=== PATIENT | male | born 1950 | race Caucasian/White ===

== ENCOUNTER 2019-08-17 12:23 | Emergency (ER) | payer SELFPAY ==
[2019-08-17 13:25] LABS: Protime INR 0.97
[2019-08-17 13:27] LABS: Absolute Lymphocytes (CBC) 1.5 K/uL (0.7-4.9); Basophils % 0.5 % (0-1.3); Hematocrit 38.5 % (39.6-49.0); Lymphocytes % 15.5 % (15.3-44.8); MPV 8.4 fL (7.6-11.3); RBC Red Blood Cell Count 4.38 M/uL (4.33-5.43)
[2019-08-17 13:37] LABS: ALT/SGPT 17 U/L (12-78); AST/SGOT 18 U/L (15-37); Albumin 3.2 g/dL (3.4-5.0); Alkaline Phosphatase 105 U/L (45-117); BUN Blood Urea Nitrogen 19 mg/dL (7-18); Bicarbonate 26 mmol/L (21-32); Bilirubin Direct 0.1 mg/dL (0-0.2); Bilirubin Total 0.6 mg/dL (0.2-1.0); Glucose Level 84 mg/dL (74-106); NT PRO-BNP 427 pg/mL (<125); Potassium 3.6 mmol/L (3.5-5.1); Protein, Total 6.7 g/dL (6.4-8.2); Sodium Level 141 mmol/L (136-145); Troponin (Emerg Dept Use Only) < 0.02 ng/mL (0.0-0.045)
--- NOTE | 2019-08-17 13:47 | RAD REPORT ---
EXAM DESCRIPTION: RAD - Chest Single View - 08/17/2019 1:36 pm CLINICAL HISTORY: CHEST PAIN Chest pain. COMPARISON: No comparisons FINDINGS: Portable technique limits examination quality. The lungs are grossly clear. The heart is normal in size. No displaced fractures. IMPRESSION: No acute intrathoracic process suspected.
--- NOTE | 2019-08-17 14:44 | EDPHYS ---
Physician Documentation [facility] Name: Raffaele Weinberg Age: 69 yrs Sex: Male : 1950 Arrival Date: 08/17/2019 Time: 12:14 Bed 17 Private MD: ED Physician Yoshi Lee HPI: 08/16 12:17 This 69 yrs old Male presents to ER via EMS with complaints of Chest Pain. [facility] 12:17 The patient presents with abdominal pain. The symptoms are described as achy. This is a jmm 69 year old male with a history of dm, htn, hlp, cva that presents to the ED with complaints of mild episogastric abdominal pain. Patient currently has no other complaints. According to PD, patient had complaints of hip pain, left left sided pain. . Historical: - PMHx: 12:45 Diabetes - NIDDM; Hypertension; Hyperlipidemia; CVA; CHF; sv - Immunization history:: Adult Immunizations up to date. ROS: 12:17 Constitutional: Negative for fever, chills, and weight loss, Cardiovascular: Negative jmm for chest pain, palpitations, and edema, Respiratory: Negative for shortness of breath, cough, wheezing, and pleuritic chest pain. 12:17 Abdomen/GI: Positive for abdominal pain. 12:17 All other systems are negative. Exam: 12:17 Constitutional: This is a well developed, well nourished patient who is awake, alert, jmm and in no acute distress. Head/Face: atraumatic. Eyes: EOMI, no conjunctival erythema appreciated ENT: Moist Mucus Membranes Neck: Trachea midline, Supple Chest/axilla: Normal chest wall appearance and motion. Cardiovascular: Regular rate and rhythm. No edema appreciated Respiratory: Normal respirations, no respiratory distress appreciated 12:17 Back: Normal ROM Skin: General appearance color normal MS/ Extremity: Moves all extremities, no obvious deformities appreciated, no edema noted to the lower extremities Neuro: Awake and alert, normal gait Psych: Behavior is normal, Mood is normal, Patient is cooperative and pleasant 12:17 Abdomen/GI: Inspection: abdomen appears normal, Bowel sounds: normal, Palpation: abdomen is soft and non-tender. Vital Signs: 12:30 BP 138 / 84; Pulse 74; Resp 21; Pulse Ox 97% ; ah 13:30 BP 161 / 90; Pulse 73; Resp 21; Pulse Ox 100% ; ah 14:42 BP 167 / 86; Pulse 76; Resp 18; Pulse Ox 100% on R/A; mh5 MDM: 12:17 Patient medically screened. [facility] 14:41 Data reviewed: vital signs, nurses notes. Counseling: I had a detailed discussion with jordyn the patient and/or guardian regarding: the historical points, exam findings, and any diagnostic results supporting the discharge/admit diagnosis, lab results, radiology results, the need for outpatient follow up, to return to the emergency department if symptoms worsen or persist or if there are any questions or concerns that arise at home. ED course: Patient is alert and non toxic in appearance. Vitals WNL. Patient is advised to return to the ED if symptoms worsen. Patient understood an agrees with the plan of care. . 08/16 12:45 Order name: Basic Metabolic Panel; Complete Time: 13:41 [facility] 08/16 12:45 Order name: CBC with Diff; Complete Time: 13:31 [facility] 08/16 12:45 Order name: LFT's; Complete Time: 13:41 [facility] 08/16 12:45 Order name: Magnesium; Complete Time: 13:41 [facility] 08/16 12:45 Order name: NT PRO-BNP; Complete Time: 13:41 [facility] 08/16 12:45 Order name: PT-INR; Complete Time: 13:31 [facility] 08/16 12:45 Order name: Troponin (emerg Dept Use Only); Complete Time: 13:41 [facility] 08/16 12:45 Order name: XRAY Chest (1 view); Complete Time: 14:02 [facility] 08/16 12:45 Order name: EKG; Complete Time: 12:46 [facility] 08/16 12:45 Order name: Cardiac monitoring; Complete Time: 12:55 [facility] 08/16 12:45 Order name: EKG - Nurse/Tech; Complete Time: 13:13 [facility] 08/16 12:45 Order name: IV Saline Lock; Complete Time: 13:08 [facility] 08/16 13:07 Order name: Lipase; Complete Time: 14:02 08/16 13:19 Order name: Glucose, Ancillary Testing; Complete Time: 13:31 [facility] 08/16 12:45 Order name: Labs collected and sent; Complete Time: 13:08 [facility] 08/16 12:45 Order name: O2 Per Protocol; Complete Time: 13:08 [facility] 08/16 12:45 Order name: O2 Sat Monitoring; Complete Time: 13:08 [facility] Administered Medications: No medications were administered Disposition: 15:44 Co-signature as Attending Physician, Yoshi Lee MD I agree with the assessment and [facility] plan of care. Disposition: 08/17/19 14:44 Discharged to Home. Impression: Person with feared health complaint in whom no diagnosis is made. - Condition is Stable. - Medication Reconciliation Form, Thank You Letter, Antibiotic Education, Prescription Opioid Use form. - Follow up: Private Physician; When: 2 - 3 days; Reason: Recheck today's complaints, Continuance of care, Re-evaluation by your physician. Signatures: Dispatcher [employer] Mandy Alegria RN Yoshi Chatterjee MD MD cha Mickail, Joel, PA PA jmm Baxter, Heather, RN RN hb Harris, Amy, RN RN Corrections: (The following items were deleted from the chart) 15:01 14:44 08/17/2019 14:44 Discharged to Home. Impression: Person with feared health hb complaint in whom no diagnosis is made. Condition is Stable. Forms are Medication Reconciliation Form, Thank You Letter, Antibiotic Education, Prescription Opioid Use. Follow up: Private Physician; When: 2 - 3 days; Reason: Recheck today's complaints, Continuance of care, Re-evaluation by your physician. [facility]
--- NOTE | 2019-08-17 14:44 | ER ---
Nurse's Notes [facility] Name: Raffaele Weinberg Age: 69 yrs Sex: Male : 1950 Arrival Date: 08/17/2019 Time: 12:14 Bed 17 Private MD: Diagnosis: Person with feared health complaint in whom no diagnosis is made Presentation: 08/16 12:10 Chief complaint: EMS states: chest pain since yesterday while in [place], was being sv transferred to [facility] and they wouldn't take him unless he got checked out. c/o soreness all over body. Coronavirus screen: Proceed with normal triage. Patient denies a cough. Patient denies shortness of breath or difficulty breathing. Patient denies measured and/or subjective temperature greater than 100.4F prior to today's visit. Patient denies travel on a cruise ship or to a country the [facility] currently lists as an affected area. Patient denies contact with known and/or suspected case of COVID-19. Ebola Screen: No symptoms or risks identified at this time. Risk Assessment: Do you want to hurt yourself or someone else? Patient reports no desire to harm self or others. Onset of symptoms was August 16, 2019. 12:10 Method Of Arrival: EMS: [facility] sv 12:10 Acuity: MARELY 3 sv 14:27 Initial Sepsis Screen: Does the patient meet any 2 criteria? No. Patient's initial sepsis screen is negative. Does the patient have a suspected source of infection?. Historical: - PMHx: 12:45 Diabetes - NIDDM; Hypertension; Hyperlipidemia; CVA; CHF; sv - Immunization history:: Adult Immunizations up to date. Screenin:26 Abuse screen: Denies threats or abuse. Nutritional screening: No deficits noted. Tuberculosis screening: No symptoms or risk factors identified. Fall Risk None identified. Assessment: 13:08 General: Appears uncomfortable, Behavior is calm, cooperative. Pain: Complains of pain ah in epigastric area Pain does not radiate. Quality of pain is described as aching, throbbing, Pain began 1 hour ago. Neuro: Level of Consciousness is awake, alert, Oriented to person, place, time, situation. Cardiovascular: Capillary refill < 3 seconds Patient's skin is warm and dry. Rhythm is sinus rhythm. Respiratory: Airway is patent Respiratory effort is even, unlabored. GI: Last BM was August 15, 2019. Bowel sounds present X 4 quads. Abdomen is tender to palpation in right upper quadrant. Derm: Skin is intact, is healthy with good turgor. 14:27 Reassessment: Pt resting with eyes closed and resp even and unlabored. 2 officers sitting outside of room. Vital Signs: 12:30 BP 138 / 84; Pulse 74; Resp 21; Pulse Ox 97% ; ah 13:30 BP 161 / 90; Pulse 73; Resp 21; Pulse Ox 100% ; ah 14:42 BP 167 / 86; Pulse 76; Resp 18; Pulse Ox 100% on R/A; mh5 ED Course: 12:14 Patient arrived in ED. 12:15 Lucas Myrick PA is PHCP. [facility] 12:15 Yoshi Lee MD is Attending Physician. [facility] 12:16 Triage completed. sv 12:38 EKG done, by laboratory development technician. reviewed by Lucas SALAS. at1 12:45 Inserted saline lock: 20 gauge in right antecubital area, using aseptic technique. ah 12:55 Sandra Garcia, RN is Primary Nurse. 13:37 XRAY Chest (1 view) In Process Unspecified. EDMS 14:26 Patient has correct armband on for positive identification. Bed in low position. Call light in reach. Side rails up X2. Security at bedside. proof machine operator on. Pulse ox on. NIBP on. 14:27 Patient maintains SpO2 saturation greater than 95% on room air. 14:27 Patient notified of wait time. 14:30 No provider procedures requiring assistance completed. IV discontinued, intact, bleeding controlled, No redness/swelling at site. Pressure dressing applied. Administered Medications: No medications were administered Outcome: 14:44 Discharge ordered by . [facility] 14:44 Discharged to home ambulatory. 14:44 Condition: good 14:44 Discharge instructions given to patient, Instructed on discharge instructions, follow up and referral plans. Demonstrated understanding of instructions, follow-up care. 15:01 Patient left the ED. hb Signatures: Dispatcher [employer] EDMS Mandy Dye RN RN Lucas Myrick PA PA [facility] Lorie Du, technical mgr EKG Tat1 Juju Denise RN RN hb Lindy Moon [facility] Sandra Garcia, RN RN
[2019-08-17 15:17] VITALS: O2SAT 100
[2019-08-17 15:18] VITALS: BP 167/86
--- NOTE | 2019-08-18 06:27 | EKG ---
Test Date: 2019-08-17 Test Time: 12:30:42 Auto Polisher: INES MEASUREMENT RESULTS: Intervals: Rate: 74 AR: 154 QRSD: 94 QT: 386 QTc: 428 [place]: P: 53 AR: 154 QRS: 56 T: 66 INTERPRETIVE STATEMENTS: Normal sinus rhythm Minimal voltage criteria for LVH, may be normal variant Borderline ECG No previous ECG available for comparison Electronically Signed On 08-18-19 06:24:31 CDT by Elbert Reyes
== END 2019-08-17 15:01 | disposition home or self-care (01) ==
LOC: ER 12:23
DX: Z71.1 Person with feared health complaint in whom no diagnosis is made (principal); I10 Essential (primary) hypertension
CPT/HCPCS: 36415; 71045; 80048; 80076; 82947; 83690; 83735; 83880; 84484; 85025; 85610; 93005; 99285